=== PATIENT | female | born 1960 | race Caucasian/White ===

== ENCOUNTER → 2017-03-13 | Day surgery (SDC) | payer OTHER ==
[~2017-03-13] MED LIST: ACETAMINOPHEN/HYDROcodone 325 MG/5 MG TAB ONE; BUPIVACAINE/EPINEPHRINE 0.5% PF 30 ML VIAL INFIL ONE; KETOROLAC TROMETHAMINE 30 MG/ML (IVP) VIAL IV PUSH ONE; LACTATED RINGER'S 1000 ML INJ 1,000 ML ONE; MIDAZOLAM HCL 2 MG/2 ML VIAL ONE; MORPHINE SULFATE 4 MG/ML INJ ONE; ONDANSETRON HCL 4 MG/2 ML VIAL IV PUSH ONE; PROPOFOL 200 MG/20 ML AMP IV ONE; ceFAZolin INJ 1,000 MG VIAL ONE
--- NOTE | 2017-03-13 08:56 | MP ---
cc: ASIF VERA M.D. 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 PROCEDURE Left knee arthroscopic partial medial meniscectomy with chondroplasty medial femoral condyle and lateral femoral condyle. ANESTHETIC General. SURGEON Asif Vera MD FX ARTIST SURGEON Staff. ESTIMATED BLOOD LOSS Minimum. SPECIMEN Discarded. COMPLICATIONS None known. INDICATION Norma Curtis is a 56-year-old female with debilitating left knee pain and positive MRI for meniscus tear and chondromalacia. Risks, benefits and the options of treatment were thoroughly discussed and detailed informed consent was obtained for knee arthroscopy. PROCEDURE The patient was brought to the operating room. She was placed under general anesthetic. The left lower extremity was prepped and draped in usual sterile fashion. IV antibiotics were given. Time-out was completed. Inferolateral portal was injected and the portal made and a blunt trocar used to introduce the cannula. We made a inferior medial portal with Marcaine and we aspirated the knee of cloudy debris and then we visualized the patellofemoral joint which showed some mild chondromalacia but no major lesions and photographed this. We did note some mild chondromalacia in the trochlear groove. We visualized the ACL which appeared normal. Then the lateral compartment and the meniscus appeared normal. There was significant chondromalacia within the posterior aspect of the tibial plateau with some unstable cartilage and there was significant delaminating cartilage lesion on the weightbearing portion of the lateral femoral condyle which corresponded with the MRI findings. We moved into the medial compartment and we identified significant chondromalacia on weightbearing portion of medial femoral condyle, we photographed that. We noted the tear in the posterior horn of the medial meniscus. We proceeded with a chondroplasty of the medial femoral condyle and proceeded to use the arthroscopic biters to perform a partial medial meniscectomy, using a combination of basket forceps and arthroscopic shaver, we switched over switching stick to smooth and fine-tune and then we went back into the lateral compartment with the scope still in the medial portal and could visualize the lateral femoral condyle better and bring the shaver in and perform a gentle chondroplasty on the lateral femoral condyle, smoothing and contouring. We then removed the scope and brought in from the lateral portal and again proceeded with diagnostic arthroscopy, confirmed no loose bodies in the knee. The arthroscopic equipment was removed. Marcaine had been injected by the portals. Steri-Strips were applied. Sterile dressing was applied. The patient was awoken and returned to the recovery room in stable condition. MD PARAM Tomlinson/JUAN F /8:29 AM /8:41 AM
== END | disposition home or self-care (01) ==
LOC: ESDC 06:24
PROVIDERS: ATTEND Orthopaedic Surgery Sports Medicine
DX: S83.242A Other tear of medial meniscus, current injury, left knee, initial encounter (principal); M94.262 Chondromalacia, left knee; M17.12 Unilateral primary osteoarthritis, left knee
CPT/HCPCS: 01400; 29881; J0690; J1885; J2250; J2270; J2405; J3010; J7120